=== PATIENT | female | born 1960 | race Caucasian/White ===

== ENCOUNTER 2018-06-03 06:30 | Day surgery (SDC) | payer BC ==
[2018-05-23 14:33] LABS: BASOPHILS % (AUTO) 0.2 % (0-1); EOSINOPHILS # (AUTO) 0.1 X10'3 (0-0.9); EOSINOPHILS % (AUTO) 0.9 % (0-6); LYMPHOCYTES # (AUTO) 1.5 X10'3 (1.1-4.8); MEAN CORPUSCULAR HEMOGLOBIN 29.9 PG (27.0-31.0); MEAN CORPUSCULAR HGB CONC 33.7 % (33.0-36.5); MEAN CORPUSCULAR VOLUME 88.5 FL (78-98); MEAN PLATELET VOLUME 8.6 FL (7.4-10.4); MONOCYTES # (AUTO) 0.4 X10'3 (0-0.9); MONOCYTES % (AUTO) 6.9 % (2-12); NEUTROPHILS # (AUTO) 3.4 X10'3 (1.8-7.7); PRE OP HEMATOCRIT 40.4 % (35.0-45.0); PRE OP HEMOGLOBIN 13.6 g/dL (12.0-16.0); PRE OP PLATELET COUNT 224 X10'3 (140-440); RED BLOOD COUNT 4.57 X10'6 (4.20-5.60); RED CELL DISTRIBUTION WIDTH 12.7 % (11.5-14.5)
[2018-05-23 14:46] LABS: ALBUMIN 3.6 G/DL (3.4-5.0); ALKALINE PHOSPHATASE 71 IU/L (46-116); BLOOD UREA NITROGEN 17 MG/DL (7-18); BUN/CREATININE RATIO 17.7 (6.6-38.0); CALCIUM 9.1 MG/DL (8.5-10.1); CHLORIDE 106 MMOL/L (99-107); CREATININE 0.96 MG/DL (0.40-0.90); PRE OP ALT 23 U/L (30-65); PRE OP ANION GAP 4 (8-16); PRE OP AST 17 U/L (10-37); PRE OP BILIRUB, TOTAL 0.4 MG/DL (0.0-1.0); PRE OP GLUCOSE 98 MG/DL (70-104); PRE OP POTASSIUM 3.6 MMOL/L (3.4-5.1); PRE OP SODIUM 141 MMOL/L (135-145); TOTAL CARBON DIOXIDE 31.4 MMOL/L (24-32); TOTAL PROTEIN 7.3 G/DL (6.4-8.2); eGFR 59 ML/MIN
[~2018-06-03] VITALS: Ht 172.7 cm; Wt 89.0 kg
[~2018-06-03 06:30] MED LIST: ASPI-611 PO; CETI-102 PO; ESTR0.5T PO; MULT-38 PO; RED600TA PO; cefazolin/dext.iso 2gm/100 ML IV ONE; famotidine 20mg tablet PO ONE; ringers solution, lacted 1,000 ML IV SCH; tranexamic acid inj. 1,000 MG in normal saline 100ml IV soln 90 ML IV ONE
[2018-06-03] MEDS ORDERED: ringers solution, lacted 1,000 ML IV SCH ×2 (08:38→10:55)
[2018-06-03] MEDS ORDERED: proCHLORperazine 10 MG/2 ml inj IV PRN ×2 (08:40→10:55)
[2018-06-03] MEDS ORDERED: meperidine/PF 25mg/ml syringe IV PRN ×6 (08:40→10:55)
[2018-06-03] MEDS ORDERED: morphine 4 MG/ML inj SYRINge IV PRN ×4 (08:40→10:55)
[2018-06-03] MEDS ORDERED: ondansetron/PF 4mg/2ml inj IV PRN ×2 (08:40→10:55)
[2018-06-03 08:59] VITALS: BP 114/69
[2018-06-03 09:06] VITALS: BP 114/69
[2018-06-03] MEDS ORDERED: BUPIVAcaine/PF 2.5mg/ml (0.25%) 10ml vial ONE (10:04)
[2018-06-03] MEDS ORDERED: sevoflurane 250ml liquid IH ONE (10:10)
[2018-06-03] MEDS ORDERED: fentaNYL/PF 50MCG/1 ML 2ML syringe ONE (10:15)
[2018-06-03] MEDS ORDERED: midazolam 2 mg/2 ml injection ONE (10:15)
[2018-06-03] MEDS ORDERED: LIDOcaine 1%/PF 5ML 10 MG/ML VIAL ONE (10:16)
[2018-06-03] MEDS ORDERED: propofol inj 20 ML IV ONE (10:16)
[2018-06-03] MEDS ORDERED: ROPIVAcaine 0.5% (5mg/ml) 30ml vial ONE ×2 (10:16→12:37)
[2018-06-03] MEDS ORDERED: triamcinolone acetonide 40mg/ml inj ONE (10:48)
[2018-06-03] MEDS ORDERED: dexamethasone sod phosphate 4mg/ml inj. ONE (11:14)
[2018-06-03] MEDS ORDERED: ondansetron/PF 4mg/2ml inj ONE (11:14)
[2018-06-03] MEDS ORDERED: HYDROcodone/acetaminophen 10/325mg tab PO PRN (11:25)
[2018-06-03 11:29] VITALS: BP 114/75
[2018-06-03 11:39] VITALS: BP 104/69
[2018-06-03 11:49] VITALS: BP 109/69
[2018-06-03 11:59] VITALS: BP 112/66
== END 2018-06-03 12:09 | disposition home or self-care (01) ==
LOC: PAS 06:30 → EDSTATUS 09:30 → PAS 12:09
PROVIDERS: ATTEND Orthopaedic Surgery
DX: M75.02 Adhesive capsulitis of left shoulder (principal); M75.42 Impingement syndrome of left shoulder; G89.18 Other acute postprocedural pain; G89.29 Other chronic pain; Z90.710 Acquired absence of both cervix and uterus; Z87.440 Personal history of urinary (tract) infections; Z88.5 Allergy status to narcotic agent; Z79.82 Long term (current) use of aspirin; Z88.6 Allergy status to analgesic agent; Z79.899 Other long term (current) drug therapy; Z98.890 Other specified postprocedural states
CPT/HCPCS: 29825; 29826; 36415; 64450; 80053; 85025; 93005; A6449; J0690; J1100; J2001; J2250; J2405; J2704; J3010; J3301; J3490; J7120; A4565; A7000; J2795; J7030